=== PATIENT | female | born 1985 | race Caucasian/White ===

== ENCOUNTER 2017-11-05 16:10 | Emergency (ER) | payer BC ==
[~2017-11-05] VITALS: Ht 165.1 cm; Wt 65.9 kg
[2017-11-05 16:14] VITALS: BP 123/83; TEMP 98.2
[2017-11-05 16:58] VITALS: PULSE 66
== END 2017-11-05 16:58 | disposition home or self-care (01) ==
LOC: COL.ER 16:10
DX: S43.402A Unspecified sprain of left shoulder joint, initial encounter (principal); S30.811A Abrasion of abdominal wall, initial encounter; S40.212A Abrasion of left shoulder, initial encounter; V49.40XA Driver injured in collision with unspecified motor vehicles in traffic accident, initial encounter